=== PATIENT | female | born 1945 | race African-American/Black ===

== ENCOUNTER 2017-12-26 19:44 | Emergency (ER) | payer MEDICARE, MEDICAID ==
[~2017-12-26] VITALS: Ht 157.5 cm; Wt 110.7 kg
[2017-12-26 20:30] VITALS: BP 138/58
[2017-12-26] MEDS ORDERED: NAPROXEN250 M1 PO (21:00)
[2017-12-26] MEDS ORDERED: Naproxen 500mg tab ORAL ONE (21:00)
--- NOTE | 2017-12-26 21:01 | Emergency Room Report ---
History of Present Illness General Chief Complaint: Upper Extremity Injury Source: Patient Present Illness HPI This patient is here with pain to right elbow region. No trauma, no fever. Pain with movement. Similar history in remote past related to bursitis. She does use a lot (she has a five year old great grandson primary parent.) No trauma, no fever, no shortness of breath, no travel history, no leg swelling. no chest pain , no diaphoresis, no exertional complaints, no nausea, no vomiting, no diarrhea , no abdominal pain. Allergies: Coded Allergies: CODEINE (Verified Allergy, Unknown, 12/26/17) SULFA (SULFONAMIDE ANTIBIOTICS) (Verified Allergy, Unknown, 12/26/17) Patient History Last Menstrual Period: NA Nursing Documentation-PMH Hx Hypertension: Yes Hx Cancer: Yes - breast ca 2016 Review of Systems Constitutional: Denies: fever Eye: Denies: acuity changes Respiratory: Denies: cough, shortness of breath Cardiovascular: Denies: chest pain Gastrointestinal: Denies: nausea, vomiting Skin: Denies: rash Neurological: Denies: headache Physical Exam Vital Signs Date Time Temp Pulse Resp B/P (MAP) Pulse Ox O2 Delivery O2 Flow Rate FiO2 12/26/17 19:59 98.9 79 18 147/60 98 Room Air 99.0 General Appearance: well appearing, no apparent distress, obese Head: normocephalic, atraumatic ENT: hearing grossly normal, normal voice Neck: full range of motion, supple Respiratory: no respiratory distress, speaking full sentences Musculoskeletal: no calf tenderness, other - mild sts posterior aspect right elbow/olecranon region, can ROM supinate/pronate and no bony tenderness but + boggy. no warmth. Neurologic: alert, normal gait Psychiatric: mood/affect normal Skin: no rash Medical Decision Making Diagnostic Impression: Primary Impression: Bursitis due to overuse Last Vital Signs Date Time Temp Pulse Resp B/P (MAP) Pulse Ox O2 Delivery O2 Flow Rate FiO2 12/26/17 19:59 98.9 79 18 147/60 98 Room Air 99.0 Disposition: HOME, SELF-CARE Condition: Stable Scripts Naproxen (Naproxen) 250 Mg Tablet 250 MG PO BID, #20 TAB Prov: Carlos Almendarez M.D. 12/26/17 Patient Instructions: Elbow Bursitis, [id number] aCrlos Almendarez M.D. Dec 26, 2017:01
[2017-12-26 21:13] VITALS: BP 136/60
== END 2017-12-26 21:15 | disposition home or self-care (01) ==
LOC: EDBD 19:44 → EMR 20:37
DX: M70.88 Other soft tissue disorders related to use, overuse and pressure other site (principal); E66.9 Obesity, unspecified; Z68.41 Body mass index [BMI] 40.0-44.9, adult; Z88.6 Allergy status to analgesic agent; Z88.2 Allergy status to sulfonamides; I10 Essential (primary) hypertension; Z85.3 Personal history of malignant neoplasm of breast
CPT/HCPCS: 99283